=== PATIENT | female | born 1985 | race Caucasian/White ===

== ENCOUNTER 2024-05-15 13:02 | Outpatient (AMB) | payer OTHER, SELFPAY ==
--- NOTE | 2024-05-15 13:09 | HO.SPINEOV ---
Intake Visit Reasons: right sided back pain Intake Note: Ms. Nelson is here today c/o Right sided back pain that radiates to the legs causing shooting pain and numbness to the feet. Space Operations Required: No Allergies No Known Allergies Allergy (Verified 05/15/24 13:10) Assessment & Plan Assessment & Plan (1) SI (sacroiliac) joint dysfunction: Code(s): M53.3 - Sacrococcygeal disorders, not elsewhere classified Category: Medical Plan Dear Dr. Hooper, Thank you for referring Raysa to our office today. She is a pleasant 38-year-old female who comes in today with a chief complaint of low back pain and right hip/thigh pain. She has a longstanding history of right SI joint dysfunction has been extensively worked up for conservative measures by our colleagues at [facility]. She reports that her symptoms began shortly after childbirth roughly 18 years ago. She began having pain in right SI joint area shortly after natural childbirth with her 1st son. As a result of this she tried several oepd-ndc-kcjskru and conservative measures including Tylenol, ibuprofen, pain patches/creams, and prescription muscle relaxers. She has tried Lyrica, meloxicam, and gabapentin all of which were not very helpful and had negative side effects for her. She has been to physical therapy and did at 1 point find stretching/exercise helpful, but it is no longer working to help mitigate her pain. She has had several different types of injections, and most recently had a right SI joint injection that provided near complete relief of her pain (95% relief documented) for about 1-2 weeks. Unfortunately after the injection wore off her pain came back full force. She is now referred to our office to discuss the possibility of SI joint fusion. PMH: Tympanostomy tubes placed x2. Tympanoplasty x1. Tubal ligation, septoplasty. No other reported medical history. Social hx: Patient smokes 1/2 pack cigarettes per day. Denies any substance use. Medications: No current prescription medications per patient. Allergies: NKDA. Physical exam: The patient has 5/5 strength in her upper and lower extremities but does elicit quite a bit of pain to right-sided iliopsoas testing. She has to brace herself on the chair in order to rise from a seated position. Her reflexes are 2+ intact. She denies any significant sensational deficits. (+) Alva's on the right, (+) Gaenslen's on the right, (+) right-sided SI joint compression test, (+) Tori finger test. Imaging review: MRI of the lumbar spine completed at [facility] shows no evidence of central canal or foraminal stenosis. There is no subluxation this is a generally unremarkable MRI study. Impression: Raysa is a pleasant 38-year-old female who comes in today to discuss the possibility of SI joint fusion after exhausting conservative measures with physiatry/pain management. She has had this pain for 18 years and feels it is worsening to the point where it is affecting her activities of daily living. She had recent 95% relief from right-sided SI joint injections for 1-2 weeks. Her history, examination, and clinical picture most consistent with a right-sided SI joint dysfunction, likely initially presenting secondary to the noted inciting incident of childbirth 18 years ago. I believe she would be a good candidate for a right-sided SI joint fusion given the conservative measures she has exhausted thus far. We discussed what this would entail, and I answered all of her questions to the best of my ability. I will be discussing this case with the attending neurosurgeon Dr. Kitchen, and will call to update the patient regarding a surgical plan early next week. Thank you for allowing us to care for your patient. The total time spent with this visit with this patient was 45 minutes reviewing history, physical exam, MRI imaging review, and implementation of treatment plan or further diagnostic testing Miko Kitchen MD,PhD [facility] Coding Level of Care Code New Pt Level 4 (99444) Diagnoses SI (sacroiliac) joint dysfunction M53.3
== END 2024-05-15 13:30 | disposition home or self-care (01) ==
PROVIDERS: Referring Provider Physical Medicine & Rehabilitation; Visit Provider Physician Assistant
DX: M53.3 Sacrococcygeal disorders, not elsewhere classified (principal)
CPT/HCPCS: 99204

== ENCOUNTER → 2024-05-15 13:02 | Outpatient (BNVA) | payer OTHER, SELFPAY | PROVIDERS: Referring Provider Physical Medicine & Rehabilitation; Visit Provider Physician Assistant ==

== ENCOUNTER 2024-06-12 10:04 | Outpatient (REF) | payer OTHER, SELFPAY | END 2024-06-12 10:05 | disposition home or self-care (01) | LOC: HO.HOSX 10:04 | PROVIDERS: Visit Provider Physician Assistant | DX: Z13.89 Encounter for screening for other disorder (principal) ==

== ENCOUNTER 2024-06-14 10:04 | Outpatient (REF) | payer OTHER, SELFPAY ==
--- NOTE | ~2024-06-14 | XR_ITS ---
EXAMINATION: XR SACROILIAC JOINTS CLINICAL INFORMATION: M53.3 - Sacrococcygeal disorders, not elsewhere classified COMPARISON: None available. TECHNIQUE: 3 views of the sacroiliac joints FINDINGS: Submitted for interpretation on June 15, 2024. No acute cortical disruption. No lytic or blastic lesions. Spina bifida occulta at S1, congenital. XR/XR sacroiliac joint 1-2V IMPRESSION: No acute fracture. Electronically signed by: Ric Darling MD 06/15/2024 08:17 AM EST
== END 2024-06-14 10:05 | disposition home or self-care (01) ==
LOC: HO.HOSX 10:04
PROVIDERS: Visit Provider Physician Assistant
DX: M53.3 Sacrococcygeal disorders, not elsewhere classified (principal)
CPT/HCPCS: 72200

== ENCOUNTER → 2024-06-14 12:27 | Outpatient (BNV) | payer OTHER, SELFPAY | PROVIDERS: Visit Provider Radiology Diagnostic Radiology | DX: M53.3 Sacrococcygeal disorders, not elsewhere classified (principal) | CPT/HCPCS: 72200 ==

== ENCOUNTER 2024-07-13 08:54 | Day surgery (SDC) | payer OTHER, SELFPAY ==
--- NOTE | 2024-07-11 12:24 | HO.ANESPROP2 ---
Documented by User: Niecy Madera NP 07/11/24 12:24 HPI - Anesthesia Eval Consult details Narrative: 39yo F for Right Sacroiliac Joint Fusion PMFSH Active Problems Active Problems: All Active Problems SI (sacroiliac) joint dysfunction (Acute) Past Medical History Medical History (Updated 07/11/24 @ 09:15 by Evi Infante RN) Chronic cough Cervical radiculopathy Psychogenic headache Tobacco dependence Surgical History Surgical History (Updated 07/11/24 @ 09:15 by Evi Infante RN) Hx of tubal ligation Hx of nasal septoplasty Hx of tympanostomy tubes Social History Social History (Updated 07/11/24 @ 09:12 by Evi Infante RN) Household Members: Family Patient Tobacco Use Status: Current everyday Tobacco user Tobacco use type: Cigarette Cigarette Packs Per Day: 0.5 Cigarettes Per Day: 10.0 Years Smoked: 25 Use of substances other than those prescribed or required for medical reasons: No Are you DNR?: No Advance Directives: No Advance Directives Information Provided: Yes Recently lost weight without trying: No Nutrition Risks: No Nutritional Risk Patient : No Meds Allergies Allergy/AdvReac Type Severity Reaction Status Date / Time meloxicam Allergy Intermediate Headache Verified 07/11/24 09:10 pregabalin Allergy Intermediate adverse Verified 07/11/24 09:10 side effects Home Medications ?Medication ?Instructions ?Recorded ?Confirmed ?Last Taken ?Type No Known Home Meds 07/11/24 07/11/24 Unknown History Exam Height,Weight and Vital Signs: Height 5 ft 2 in Assessment and Plan Assessment Anesthesia Assessment: Chart Reviewed Documented by User: Staci Irving MD 07/13/24 09:42 PMFSH Past Medical History Medical History (Updated 07/11/24 @ 09:15 by Evi Infante RN) Chronic cough Cervical radiculopathy Psychogenic headache Tobacco dependence Family History Family history of problems with anesthesia: No Surgical History Surgical History (Updated 07/11/24 @ 09:15 by Evi Infante RN) Hx of tubal ligation Hx of nasal septoplasty Hx of tympanostomy tubes History of Problems with Anesthesia: No Social History Social History (Updated 07/11/24 @ 09:12 by Evi Infante RN) Household Members: Family Patient Tobacco Use Status: Current everyday Tobacco user Tobacco use type: Cigarette Cigarette Packs Per Day: 0.5 Cigarettes Per Day: 10.0 Years Smoked: 25 Use of substances other than those prescribed or required for medical reasons: No Are you DNR?: No Advance Directives: No Advance Directives Information Provided: Yes Recently lost weight without trying: No Nutrition Risks: No Nutritional Risk Patient : No Meds Allergies Allergy/AdvReac Type Severity Reaction Status Date / Time meloxicam Allergy Intermediate Headache Verified 07/11/24 09:10 pregabalin Allergy Intermediate adverse Verified 07/11/24 09:10 side effects Home Medications ?Medication ?Instructions ?Recorded ?Confirmed ?Last Taken ?Type No Known Home Meds 07/11/24 07/11/24 Unknown History Exam Airway Mallampati Class: II TM Dist: >3cm Neck ROM: Full Assessment and Plan Assessment Anesthesia Assessment: Anesthesia Plan Discussed Final Anesthetic Review Family History of Problems with Anesthesia: No History of Problems with Anesthesia: No NPO: Yes ASA Class: II Final Preanesthetic Review: No Changes in Pt Med Stat, Meds/Allgs Chart Reviewed, Consent Obtained/Reviewed, Anes Risks/Benef Reviewed and DNR Form (If Appl.) Patient Risk: Low Procedure Risk: Low Anesthetic Plan Anesthetic Plan: GA Disposition: Standard PACU
[2024-07-13] VITALS (9 sets, daily range): BP systolic 98–110; BP diastolic 51–69; PULSE 59–87; RESP 16–18; TEMP 36.1–37.3; O2SAT 99–100; BMI 23.7
--- NOTE | ~2024-07-13 | FL_ITS ---
EXAMINATION: FL GUIDANCE ONLY HISTORY: SI joint right COMPARISON: Correlation is made with plain films of the sacroiliac joints dated 06/14/2024. TECHNIQUE: Fluoroscopy time: 28.4 seconds. Cumulative Dose: 7.81 mGy. DAP: 2.74 uGy-m2 (microgray-meter squared). Images: 2. FINDINGS: Two fluoroscopic spot films were obtained of the lumbosacral junction and right sacroiliac joint. FL/FL guidance in OR IMPRESSION: Fluoroscopy during procedure. Please see procedure report for additional information. Electronically signed by: Obed Raymond MD 07/21/2024 01:22 PM [facility]KO
--- NOTE | 2024-07-13 07:06 | PM.DS ---
DS: Providers Provider Date of Service: 07/13/24 Date of discharge: 07/13/24 Primary care physician: Unknown Physician DS: Summary Time Attestation Discharge Coordination Time (in mins): 14 Quality: Safe Use of Opioids Does Pt have an Active Cancer Diagnosis on the Problem List?: No Quality: Stroke Does the patient have a stroke diagnosis?: No Discharge Plan Discharge Patient Disposition: Home, Self-Care Referrals: Physician,Unknown J [Primary Care Provider] - 1 Week Discharge Medications: New oxycodone 5 mg tablet 5 mg PO Q6H PRN (Reason: pain) Qty: 20 0RF Rx Instructions: Partial Fill upon patient request. Discharge Orders: Discharge Order (Routine); Ordered 07/13/24 Ordered By: Miko Covarrubias Diet: Advance to usual diet Activity on Discharge: As tolerated Activity Restrictions/Additional Instructions: After your spinal surgery we ask you to observe the following restrictions/guidelines: Activity: It is normal to feel some discomfort as you increase your activity, but that will improve with time. We ask you avoid heavy lifting or acitivities that cause pain. As a general rule, 8lbs is a safe limit for lifting right after surgery. Walk as much as you feel comfortable but not to exhaustion. You will feel extra tired the first few days after surgery. Stay well hydrated. It is OK to walk up and down stairs You may return to driving when you are off narcotics (such as vicodin, oxycodone, dilaudid, etc), and you are back to normal functional capacity. If you have any concerns please check with office before driving. Return to work is specific to each patient and each surgery, so please speak with your doctor/PA at first follow up. Please bring paperwork such as FMLA at that time if you need it filled out. Medications: We recommend you take 1,000mg Tylenol every 8 hours for the first few weeks after surgery, if you do not have any liver issues and can tolerate this medication. Do not exceed 4,000mg daily. We will give you a short supply of narcotics after surgery (usually one weeks worth). If you need more please call the office but do not use more than prescribed. You will need to give our office 48 hours notice if you need narcotics refilled and we do not fill narcotics on weekends or evenings. If you are on a narcotic, it is a good idea to take a stool softener such as colace or senna to avoid constipation If you take blood thinner such as aspirin, Plavix, Coumadin, Effient, Eliquis etc for conditions such as Afib, DVT, Pulmonary embolus, coronary disease, stents etc please speak with your surgeon about specific details as to when you can resume these medications. You can resume NSAIDs on post op day 1 (eg: Motrin, Naproxen, etc). Follow up: Please call the office, , after surgery to arrange a 3 week follow up for wound check. Wound Care: You may remove your dressing on the first day after surgery. ?You may ?leave open to air. Please do not remove the steri strips underneath. they will fall off on their own in one week. IT IS NORMAL FOR THE WOUND TO OOZE OR BE BLOODY FOR A FEW DAYS AFTER SURGERY. ?IF THIS HAPPENS JUST PLACE NEW DRESSING OVER IT TO AVOID STAINING CLOTHES. You may shower on post op day # 1 We ask that you do not let the water soak the wound. If it does get wet, just towel dry lightly. Please do not scrub your incision or place any type of chemical/ointment on the wound. No tub baths, pools or jacuzzis for one month. If you have any leaking or redness from your wound, or fevers, please call the office. Print Language: Telugu
[2024-07-13] MEDS: methocarbamoL 750 MG TABLET PO (09:21)
[2024-07-13] MEDS: Lactated Ringers 1,000 ML 100 ML IVCONT (09:29)
--- NOTE | 2024-07-13 09:44 | MHC.SHP ---
Pre-Procedural Eval Section A - 24 Hr Update-Section A only Date of Service: 07/13/24 Section B - Complete if H&P > 30 days Chief Complaint: Sacrococcygeal disorders, not elsewhere classified Allergies: Allergies Allergy/AdvReac Type Severity Reaction Status Date / Time meloxicam Allergy Intermediate Headache Verified 07/11/24 09:10 pregabalin Allergy Intermediate adverse Verified 07/11/24 09:10 side effects Review of Systems Sugical H&P ROS: Negative: Constitution, Cardiovascular, Respiratory, Neurological, Psychiatric, Hem-Onc, Allergic/Immunologic, Gastrointestinal, Genitourinary, Musculoskeletal, Integumentary, Endocrine and Eyes/Ears/Nose/Throat Exam Surgical H&P Exam: Not Evaluated: HEENT, Not Evaluated: Heart, Not Evaluated: Lungs, Not Evaluated: Extremities, Not Evaluated: Abdomen, Not Evaluated: Skin and Not Evaluated: Neurological Exam Comment: Patient is awake, alert, in no acute distress. Proposed surgical incision site is clean with no signs of recent surgery or trauma. Plan Diagnosis/Plan: Unchanged I have reviewed the history and physical and performed a pertinent physical examination on my patient. No changes have occurred unless specified. Plan remains the same, right SI joint fusion Time Spent With Patient Time: Total time managing care of this patient today __10__ minutes.
--- NOTE | 2024-07-13 11:39 | W.PM.OPN ---
Operative Note Operative Note Date of Service: 07/13/24 Narrative: Preoperative diagnosis: Right sacroiliac joint dysfunction Postoperative diagnosis: Same Operative procedure: Right sacroiliac joint fusion with 1 allograft implant Surgeon: Brennan Kitchen MD, PhD Senior Electrical Estimator: Miko Covarrubias PA-C Anesthesia: General Description of procedure: The patient is suffering from right SI joint dysfunction refractory to nonoperative management. The patient has tried and failed all forms of conservative manage med except for an excellent short-term response to a sacroiliac joint injection. The sacroiliac joint was confirmed to be the pain generator after repeated pain blocks. The patient was offered surgical treatment with fixation and arthrodesis of the SI joint. The patient was brought to the operating room and endotracheally intubated. The patient was turned in a prone position on Jeremiah spine table. Prepping and draping was done followed by a time-out. A C-arm was alternately positioned for lateral, oblique oblique and pelvic inlet and outlet projections througout the procedure. Skin markings were made for the anticipated position of the implant. A 2.5 cm longitudinal skin incision was made. A guide pin was inserted in an outlet oblique image for guidance follow-up insertion of dilator and working cannula. This was secured by placing an anchor pin into the ilium. Consideration was taken to cut channels utilizing a series of drills for decortication and internal fixation device placement. The implant was inserted such that it passed through the ilium, across the sacroiliac joint and into the sacrum, thus transfixing the sacroiliac joint. Proper positioning was confirmed on lateral fluoroscopy. The implant was packed with autologous bone collected from remain of the sacrum and ilium. Additional graft material was inserted into the channel void following the implant. The instruments were withdrawn. Upon completion, final images were obtained that showed a satisfactory position of the implant. Hemostasis was done. The incision was closed with an 0 Vicryl to fashion a 3-0 Vicryl subdermal layer after injecting Marcaine. Dermabond was used to approximate the surgeon. All sponge and needle counts were correct. Patient was extubated and transported in a stable condition to recovery room. Estimated blood loss: 10 mL Surgical time: 20 minutes Complications: None Disposition: Discharge to home
[2024-07-13] MEDS: fentaNYL citrate/PF 100 MCG/2 ML VIAL 50 MCG IVPUSH ×3 (12:00→12:25)
== END 2024-07-13 13:31 | disposition home or self-care (01) ==
LOC: HO.SSS 08:55
PROVIDERS: Visit Provider Neurological Surgery
PROC: (CPT 27279; principal; 2024-07-13 11:30)
DX: M53.3 Sacrococcygeal disorders, not elsewhere classified (principal); M54.50 Low back pain, unspecified; Z98.890 Other specified postprocedural states; F17.210 Nicotine dependence, cigarettes, uncomplicated
CPT/HCPCS: 27279; C1713; J0131; J0690; J1100; J1885; J2003; J2250; J2405; J2704; J3010; L8699

== ENCOUNTER → 2024-07-13 08:54 | Outpatient (BNV) | payer OTHER, SELFPAY | PROVIDERS: Visit Provider Neurological Surgery | DX: M53.3 Sacrococcygeal disorders, not elsewhere classified (principal) | CPT/HCPCS: 27279; 99499 ==

== ENCOUNTER 2024-08-03 10:27 | Outpatient (AMB) | payer OTHER, SELFPAY ==
--- NOTE | 2024-08-03 10:28 | A.SPINEOV_ITS ---
Intake Visit Reasons: 1st post op Intake Note: Ms. Nelson is here today for her 1st post op visit. 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 She reports she is up walking around and completing the majority of her ADLs. She reports that at this time her pain is relatively similar to the pain she had prior to surgery. She is managing her pain well with Tylenol. We discussed the postoperative healing course, and I answered a question she may have. The patient does not need to continue using her crutches. No new neurological deficits. Patient is able to ambulate well, rises from a seated position without difficulty. Incision site is closed, well healing, with no signs of drainage. We will follow-up with the patient in 6 weeks for their 2nd postoperative visit. At that time we will get x-rays to review with the patient. Miko Kitchen MD,PhD [facility] Coding Level of Care Code Global (06163) Diagnoses S/P fusion of sacroiliac joint Z98.1
== END 2024-08-03 11:09 | disposition home or self-care (01) ==
PROVIDERS: Visit Provider Physician Assistant
DX: Z98.1 Arthrodesis status (principal)
CPT/HCPCS: 99024

== ENCOUNTER → 2024-08-03 10:27 | Outpatient (BNVA) | payer OTHER, SELFPAY | PROVIDERS: Visit Provider Physician Assistant | DX: Z47.89 Encounter for other orthopedic aftercare (principal); Z98.1 Arthrodesis status | CPT/HCPCS: 99212 ==

== ENCOUNTER 2024-09-14 09:16 | Outpatient (REF) | payer OTHER, SELFPAY ==
--- NOTE | ~2024-09-14 | XR_ITS ---
EXAMINATION: XR SACROILIAC JOINTS CLINICAL INFORMATION: Z98.1 - Arthrodesis status COMPARISON: None available. TECHNIQUE: 3 views of the sacroiliac joints FINDINGS: Fusion device is noted in the medial right SI joint. No definite complication evident. Similar appearing right greater than left SI joint arthritic changes, with mild periarticular sclerosis. No definite progression. No widening of the SI joints. Sacrum is intact. Hip joints appear normal. Lower lumbar spine appears normal. There is no soft tissue abnormality. XR/XR sacroiliac joint 1-2V IMPRESSION: 1. Arthrodesis right SI joint. No complication evident. 2. Stable right greater than left arthritic changes of the SI joints. No progression seen. Electronically signed by: Johnny Jones MD 09/14/2024 12:53 PM EDT
== END 2024-09-14 09:17 | disposition home or self-care (01) ==
LOC: HO.HOSX 09:16
PROVIDERS: Visit Provider Physician Assistant
DX: Z48.89 Encounter for other specified surgical aftercare (principal); M79.604 Pain in right leg; Z98.1 Arthrodesis status
CPT/HCPCS: 72200; 99212

== ENCOUNTER 2024-09-14 10:38 | Outpatient (AMB) | payer OTHER, SELFPAY ==
--- NOTE | 2024-09-14 10:55 | A.SPINEOV_ITS ---
Intake Visit Reasons: 2nd post op with Xrays Intake Note: Ms. Nelson is here today for her 2nd post op with x-rays. 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 She reports she is up walking around and completing the majority of her ADLs. She reports that she still has some pain in the right SI joint space, but also now has shooting pain down the posterior aspect of her right leg. This is fairly debilitating for her and is causing her a great deal of stress during the day. The pain is worse with movement and walking. She continues managing her pain with Tylenol. We discussed the postoperative healing course, and I answered any further questions she had. We reviewed her x-ray imaging during this visit which shows stable placement of the surgical construct with no changes from fluoroscopy. The patient has about 4/5 strength with right sided iliopsoas testing. She does elicit pain to right-sided iliopsoas testing. The rest of her lower extremity strength is 5/5. She has a (+) right-sided straight leg raise. I would like to send krystina for an MRI of the lumbar spine to rule out an acute nerve root impingement causing a lumbar radiculopathy. I will follow up with her after the MRI is complete. Miko Kitchen MD,PhD [facility] Orders: Orders XR sacroiliac joint 1-2V Today Z98.1 - Arthrodesis status MR lumbar spine wo con Today M79.604 - Pain in right leg Coding Level of Care Code Global (12376) Diagnoses Right leg pain M79.604
== END 2024-09-14 11:22 | disposition home or self-care (01) ==
LOC: HO.HNS 10:38
PROVIDERS: Visit Provider Physician Assistant
DX: M79.604 Pain in right leg (principal)
CPT/HCPCS: 99024

== ENCOUNTER → 2024-09-14 10:44 | Outpatient (BNV) | payer OTHER, SELFPAY | PROVIDERS: Visit Provider Radiology Diagnostic Radiology | DX: Z98.1 Arthrodesis status (principal) | CPT/HCPCS: 72200 ==

== ENCOUNTER 2024-09-20 16:26 | Outpatient (REF) | payer OTHER, SELFPAY ==
--- NOTE | ~2024-09-20 | MR_ITS ---
EXAMINATION: MR LUMBAR SPINE WITHOUT CONTRAST CLINICAL INFORMATION: Pain, right lower extremity. Status post right-sided sacroiliac joint fusion. COMPARISON: None available. TECHNIQUE: MRI of the lumbar spine was obtained using routine sequences without contrast. FINDINGS: Last rib-bearing vertebra labeled T12. No bone marrow STIR signal abnormality. Mild multilevel disc desiccation. The alignment is normal. The conus medullaris ends at intervertebral disc T12-L1 with normal signal. T11-12: No disc herniation. No neuroforamina stenosis. T12-L1: No disc herniation. No neuroforamina stenosis. L1-2: Broad-based disc bulging. Facet joint hypertrophy. No compression upon neural elements. L2-3: Broad-based disc bulging. Facet joint and ligamentum flavum hypertrophy. No compression upon neural elements. L3-4: Broad-based disc bulging. Facet joint and ligamentum flavum hypertrophy. No compression upon neural elements. L4-5: Broad-based disc bulging. Facet joint and ligamentum flavum hypertrophy. No compression upon neural elements. L5-S1: Broad-based disc bulging. Facet joint hypertrophy. No compression upon neural elements. There is a 3.7 cm fluid signal characteristic abnormality within the right midline lumbosacral muscular plane extending from L5 to S2. No prevertebral compartment hematoma, mass or fluid collection. MR/MR lumbar spine wo con IMPRESSION: 3.7 cm fluid collection, right midline L5-S1 muscular plane Mild multilevel lumbar spondylosis without compression upon neural elements. No epidural hematoma.. Electronically signed by: Ric Darling MD 09/21/2024 07:56 AM EDT
== END 2024-09-20 16:27 | disposition home or self-care (01) ==
LOC: HO.MRI 16:26
PROVIDERS: Visit Provider Physician Assistant
DX: M79.604 Pain in right leg (principal); M53.3 Sacrococcygeal disorders, not elsewhere classified
CPT/HCPCS: 72148

== ENCOUNTER → 2024-09-20 16:40 | Outpatient (BNV) | payer OTHER, SELFPAY | PROVIDERS: Visit Provider Radiology Diagnostic Radiology | DX: M79.604 Pain in right leg (principal) | CPT/HCPCS: 72148 ==

== ENCOUNTER 2024-09-25 13:25 | Outpatient (AMB) | payer OTHER, SELFPAY ==
--- NOTE | 2024-09-25 13:27 | HO.SPINEOV ---
Intake Visit Reasons: F/up MRI Intake Note: Ms. Nelson is here today to F/u on the results to her MRI. [employer] Required: No Allergies meloxicam Allergy (Intermediate, Verified 08/03/24 10:44) Headache pregabalin Allergy (Intermediate, Verified 08/03/24 10:44) adverse side effects Coding
--- NOTE | 2024-09-25 13:45 | A.SPINEOV_ITS ---
Intake Visit Reasons: F/up MRI Allergies meloxicam Allergy (Intermediate, Verified 08/03/24 10:44) Headache pregabalin Allergy (Intermediate, Verified 08/03/24 10:44) adverse side effects Assessment & Plan Assessment & Plan (1) S/P fusion of sacroiliac joint: Code(s): Z98.1 - Arthrodesis status Category: Surgical Plan Raysa comes in today for a subsequent follow-up after having a right-sided SI joint fusion completed by Dr. Kitchen. To recap she was reporting a posterior right-sided radiculopathy during her last visit, prompting an MRI of the lumbar spine. We reviewed her MRI imaging during this visit which is generally unremarkable other than some fluid collection underneath the incision site. We discussed how she is currently feeling during this visit, and after reflecting for some time she states that the pain overall is similar to how she felt prior to surgery. Even the shooting pain down her right leg is fairly similar to the pain that she had preoperatively, therefore she is not particularly concerned about the pain given that she does not believe it is related to the surgery. We discussed the possibilities of the origin of her current pain. It is very possible that she had an increase in her leg pain during her last visit as a result of nerve irritation/inflammation during the healing phase of her surgery. It is also very possible that she we will continue to see progress as she continues to heal from the surgery over the coming few months. Lastly we did discuss that a small portion of patients do not experience pain relief from the surgery, despite surgical attempts to relieve her pain. I answered all Raysa's questions to the best of my ability. I would like her to follow up again 1 year out from surgery to see if her pain has improved at all compared to today. Miko Kitchen MD,PhD [facility] Coding Level of Care Code Global (61632) Diagnoses S/P fusion of sacroiliac joint Z98.1
== END 2024-09-25 13:49 | disposition home or self-care (01) ==
LOC: HO.HNS 13:25
PROVIDERS: Visit Provider Physician Assistant
DX: Z98.1 Arthrodesis status (principal)
CPT/HCPCS: 99024

== ENCOUNTER → 2024-09-25 13:25 | Outpatient (BNVA) | payer OTHER, SELFPAY | PROVIDERS: Visit Provider Physician Assistant | DX: Z47.89 Encounter for other orthopedic aftercare (principal); Z98.1 Arthrodesis status | CPT/HCPCS: 99212 ==